=== PATIENT | female | born 1950 | race Caucasian/White ===

== ENCOUNTER → 2017-08-12 | Day surgery (SDC) | payer OTHER, MEDICARE ==
[~2017-08-12] VITALS: Ht 157.5 cm; Wt 65.8 kg
[~2017-08-12] MED LIST: CALCIUM 600-VI1 EAC1 PO; FISH OIL 1,001000 MG PO; LEXAPRO10 M1 PO; MULTIVITAMINS1 EAC9 PO; REMERON15 M2 PO; ZOCOR20 M1 PO
--- NOTE | 2017-08-12 12:01 | Operative Report ---
Operative/Inv Procedure Report Surgery Date: 08/12/17 Name of Procedure: Complex cataract extraction lens implantation left eye Pre-Operative Diagnosis: Age-related complex cataract left eye 20/125 vision Post-Operative Diagnosis: Same Estimated Blood Loss: none Surgeon/Vice President Process: Deion SALINAS,Silvestre Oconnor Anesthesia: local monitored anesthesi Complications: Broken posterior capsule with loss of lens and intra-ocular lens into the posterior cavity Operative/Procedure Note Note: The patient was brought to the operating room standard monitoring equipment was attached the patient was prepped and draped in the usual fashion for intraocular surgery. A lid speculum was placed to retract the lids. The case was begun by making 2 partial-thickness corneal relaxing incisions at 115. A temporal incision was made using a 2.4 mm keratome. The eye was stabilized with a Brooks ring during this incision. 1 mL of non-preserved lidocaine was introduced into the anterior chamber to provide anesthesia. The anterior capsule was not easily visible due to the fact that the lens was white obscuring a red reflex. As a result the lens capsule was stained with Vision Blue dye. The anterior chamber was then filled and deepened with viscoelastic. A curvilinear capsulorrhexis was achieved using a 30-gauge needle acting as a cystotome and the capsulorrhexis was finished using a Utrata forceps. A second or paracentesis incision was made temporally with a 1 mm MVR blade. The lens was then hydrodissected but could not be rotated. Following the hydrodissection the lens was forced up towards the cornea by the saline indicating a possible break in the posterior capsule. This was not entirely surprising because the patient developed this cataract after the lens was toched with vitrectomy instruments during previous pars plana vitrectomy. Phacoemulsification was commenced and a central groove was made in the nucleus however the lens almost immediately became destabilized and after the lens was bisected into 2 pieces one of the halves dislocated into the posterior segment. The other half was salvaged and emulsified however there was a large break noted in the posterior capsule. Viscoelastic was used to fill up the anterior chamber before the emulsification unit was removed from the eye and then vitrectomy instrumentation was set up. A significant anterior mechanical vitrectomy was then done. As there was significant preservation of the anterior capsular rim a decision was made to implant a 3 piece MA60 AC posterior chamber lens into the ciliary sulcus. An 18.5 dioper lens of this model was then folded and introduced into the eye however it was introduced inadvertently upside down and subsequent attempts to flip it over and place it on top of the anterior capsular rim were unsuccessful. During this portion of the surgery the iris came down in size obsccuring the view of the lens capsule and eventually the intra-ocular lens was lost into the posterior segment. A Malyugin ring was placed to retract the iris to inspect the lens capsue and to see if te lens was at all visible but it was not. No further attempts were made to retrieve it due to safety concerns. Additional vitrectomy was done to make sure that the anterior chamber was free of vitreous gel. The iris expansion ring was then removed from the eye and the 2 wounds, both of which had been enlarged during the case were sutured with a single 10-0 nylon suture each. The knots were trimmed and buried and the eye was shielded over antibiotic and steroid drops. The patient was removed to the holding area in stable condition. The patient will require additional surgery to remove both the retained natural lens as well as the intraocular lens. All of this was explained to the patient and and the patient's in the holding area . The patient did tolerate the surgery well and will be seen in the office tomorrow. Arrangements were made to have the patient see her retinal surgeon today to coordinate the retained lens and intra-ocular lens retrieval. The case was discussed with him.
== END ==
LOC: STS 01:14
DX: H25.89 Other age-related cataract (principal)
CPT/HCPCS: J2250; V2632